=== PATIENT | male | born 2000 | race Two or more races ===

== ENCOUNTER 2023-04-17 23:33 | Emergency (ER) | payer MEDICAID, OTHER ==
[~2023-04-17] VITALS: Ht 170.2 cm; Wt 86.0 kg
[2023-04-18 00:25] VITALS: BP 144/95; PULSE 89; RESP 18; O2SAT 98
== END 2023-04-18 05:22 | disposition home or self-care (01) ==
LOC: ER 23:33
DX: M25.562 Pain in left knee (principal)
CPT/HCPCS: 29505; 73562